=== PATIENT | female | born 1980 | race Caucasian/White ===

== ENCOUNTER 2016-10-20 19:34 | Emergency (ER) | payer SELFPAY ==
[~2016-10-20] VITALS: Ht 177.8 cm; Wt 76.0 kg
[2016-10-20 19:36] VITALS: BP 130/83; PULSE 100; RESP 16; TEMP 98.7; O2SAT 97
== END 2016-10-20 21:51 | disposition left against medical advice (07) ==
LOC: NED 19:34
DX: R05 Cough (principal); Z53.21 Procedure and treatment not carried out due to patient leaving prior to being seen by health care provider
CPT/HCPCS: 99281